=== PATIENT | female | born 1945 | race Caucasian/White ===

== ENCOUNTER 2021-11-02 09:59 | Observation (INO) ==
[~2021-11-02 09:59] MED LIST: Polymyxin B Sulfate 500,000 UNIT, Sodium Chloride IRRigation 1,000 ML IR ONE
[2021-11-02] MEDS ORDERED: CeFAZolin Syr 2,000MG/20 ML 2,000 MG/20 ML SYRINGE IVPB ONE (10:20)
[2021-11-02] MEDS ORDERED: Ringers Solution, Lactated 1,000 ML IVC SCH (10:30)
[2021-11-02] MEDS ORDERED: tiZANidine 4 MG TABLET PO ONE (11:00)
[2021-11-02] MEDS ORDERED: *HR* OxyCODONE Immed Rel 5 MG TABLET PO ONE (11:00)
[2021-11-02] MEDS ORDERED: Acetaminophen IV 1,000 MG/100 ML BAG IVPB ONE (11:00)
[2021-11-02] MEDS ORDERED: Famotidine 20 MG/2 ML VIAL IVP ONE (11:00)
[2021-11-02] MEDS ORDERED: Pregabalin 50 MG CAPSULE PO ONE (11:00)
[2021-11-02] MEDS ORDERED: *HR* FentaNYL (PF) 100 MCG/2 ML VIAL ONE (11:17)
[2021-11-02] MEDS ORDERED: *HR* Rocuronium Bromide 50 MG/5 ML VIAL ONE (11:18)
[2021-11-02] MEDS ORDERED: Lidocaine -MPF 2% 5 ML VIAL ONE (11:18)
[2021-11-02] MEDS ORDERED: Lidocaine HCL 4 ML Topical Solution (Laryng-O-Jet Kit Sterile Pak) TP ONE (11:22)
[2021-11-02] MEDS ORDERED: Ondansetron 4 MG/2 ML VIAL ONE (12:05)
[2021-11-02] MEDS ORDERED: Vancomycin 1,000 MG VIAL ONE (12:22)
[2021-11-02] MEDS ORDERED: EPHEDrine 50 MG/ML VIAL ONE (12:42)
[2021-11-02] MEDS ORDERED: Sugammadex Sodium 200 MG/2 ML VIAL IV ONE (13:04)
[2021-11-02] MEDS ORDERED: Morphine Sulfate 2 MG/ML SYRINGE IVP PRN (13:52)
[2021-11-02] MEDS ORDERED: Ondansetron 4 MG/2 ML VIAL IVP PRN ×2 (13:52→15:05)
[2021-11-02] MEDS ORDERED: Sennosides 8.6 MG TABLET PO PRN (15:05)
[2021-11-02] MEDS ORDERED: Naloxone 0.4 MG/ML INJ IVP PRN (15:05)
[2021-11-02] MEDS: *HR* Metformin 500 MG TABLET PO SCH (18:02)
[2021-11-02] MEDS: Pregabalin 50 MG CAPSULE PO SCH ×2 (18:03→20:04)
[2021-11-02] MEDS: CeFAZolin 2 GM/120 ML BAG IVPB SCH (20:03)
[2021-11-02] MEDS: *HR* HYDROcodone/Acet 5/325 mg TABLET PO PRN (20:04)
[2021-11-03] MEDS: CeFAZolin 2 GM/120 ML BAG IVPB SCH (03:41)
[2021-11-03] MEDS: *HR* HYDROcodone/Acet 5/325 mg TABLET PO PRN ×2 (03:48→19:11)
[2021-11-03] MEDS: Tiotropium 10 INH DOSE IH SCH (09:01)
[2021-11-03] MEDS: allopurinoL 100 MG TABLET PO SCH (09:47)
[2021-11-03] MEDS: lisinopriL 10 MG TABLET PO SCH (09:47)
[2021-11-03] MEDS: Pregabalin 50 MG CAPSULE PO SCH ×3 (09:48→20:02)
[2021-11-03] MEDS: *HR* Metformin 500 MG TABLET PO SCH ×2 (09:50→17:14)
[2021-11-04] MEDS: *HR* HYDROcodone/Acet 5/325 mg TABLET PO PRN ×2 (03:40→17:19)
[2021-11-04] MEDS: Tiotropium 10 INH DOSE IH SCH (07:54)
[2021-11-04] MEDS: lisinopriL 10 MG TABLET PO SCH (09:19)
[2021-11-04] MEDS: allopurinoL 100 MG TABLET PO SCH (09:20)
[2021-11-04] MEDS: *HR* Metformin 500 MG TABLET PO SCH ×2 (09:20→16:38)
[2021-11-04] MEDS: Pregabalin 50 MG CAPSULE PO SCH ×3 (09:20→20:23)
[2021-11-05] MEDS: lisinopriL 10 MG TABLET PO SCH (08:09)
[2021-11-05] MEDS: Pregabalin 50 MG CAPSULE PO SCH ×3 (08:10→22:04)
[2021-11-05] MEDS: allopurinoL 100 MG TABLET PO SCH (08:11)
[2021-11-05] MEDS: *HR* Metformin 500 MG TABLET PO SCH ×2 (08:11→15:38)
[2021-11-05] MEDS: Tiotropium 10 INH DOSE IH SCH (11:36)
[2021-11-05] MEDS: *HR* HYDROcodone/Acet 5/325 mg TABLET PO PRN (15:37)
[2021-11-06] MEDS: Acetaminophen 325 MG TABLET PO PRN (05:36)
[2021-11-06] MEDS: Tiotropium 10 INH DOSE IH SCH (08:40)
[2021-11-06] MEDS: lisinopriL 10 MG TABLET PO SCH (10:20)
[2021-11-06] MEDS: Pregabalin 50 MG CAPSULE PO SCH ×3 (10:20→20:50)
[2021-11-06] MEDS: allopurinoL 100 MG TABLET PO SCH (10:20)
[2021-11-06] MEDS: *HR* Metformin 500 MG TABLET PO SCH ×2 (10:22→15:40)
[2021-11-07] MEDS: *HR* OxyCODONE Immed Rel 5 MG TABLET PO PRN ×2 (06:24→14:27)
[2021-11-07] MEDS: Tiotropium 10 INH DOSE IH SCH (08:36)
[2021-11-07] MEDS: lisinopriL 10 MG TABLET PO SCH (09:19)
[2021-11-07] MEDS: allopurinoL 100 MG TABLET PO SCH (09:19)
[2021-11-07] MEDS: Pregabalin 50 MG CAPSULE PO SCH ×3 (09:20→21:04)
[2021-11-07] MEDS: *HR* Metformin 500 MG TABLET PO SCH ×2 (09:20→17:47)
[2021-11-07] MEDS: Acetaminophen 325 MG TABLET PO PRN (15:32)
[2021-11-08] MEDS: Acetaminophen 325 MG TABLET PO PRN ×2 (09:25→16:15)
[2021-11-08] MEDS: *HR* OxyCODONE Immed Rel 5 MG TABLET PO PRN (09:25)
[2021-11-08] MEDS: *HR* Metformin 500 MG TABLET PO SCH ×2 (09:26→18:40)
[2021-11-08] MEDS: lisinopriL 10 MG TABLET PO SCH (09:26)
[2021-11-08] MEDS: allopurinoL 100 MG TABLET PO SCH (09:26)
[2021-11-08] MEDS: Pregabalin 50 MG CAPSULE PO SCH ×3 (09:26→20:18)
[2021-11-08] MEDS: Tiotropium 10 INH DOSE IH SCH (10:32)
[2021-11-08] MEDS: *HR* HYDROcodone/Acet 5/325 mg TABLET PO PRN (13:03)
[2021-11-08 16:14] LABS: Influenza A PCR Negative (Negative); Influenza B PCR Negative (Negative); Resp. Syncytial Virus PCR Negative (Negative)
[2021-11-08 17:28] LABS: SARS-CoV-2 by PCR (In House) Positive (Negative)
[2021-11-08] MEDS ORDERED: 0.9 % Sodium Chloride 500 ML IVC ONE (20:43)
[2021-11-09] MEDS: *HR* HYDROcodone/Acet 5/325 mg TABLET PO PRN (06:12)
[2021-11-09] MEDS: Tiotropium 10 INH DOSE IH SCH (07:44)
[2021-11-09] MEDS: *HR* Metformin 500 MG TABLET PO SCH ×2 (08:31→15:50)
[2021-11-09] MEDS: allopurinoL 100 MG TABLET PO SCH (08:31)
[2021-11-09] MEDS: lisinopriL 10 MG TABLET PO SCH (08:31)
[2021-11-09] MEDS: Pregabalin 50 MG CAPSULE PO SCH ×3 (08:32→21:23)
[2021-11-10] MEDS: *HR* OxyCODONE Immed Rel 5 MG TABLET PO PRN (03:41)
[2021-11-10] MEDS: Tiotropium 10 INH DOSE IH SCH (07:28)
[2021-11-10] MEDS: *HR* Metformin 500 MG TABLET PO SCH ×2 (09:29→16:00)
[2021-11-10] MEDS: Pregabalin 50 MG CAPSULE PO SCH ×3 (09:29→22:14)
[2021-11-10] MEDS: lisinopriL 10 MG TABLET PO SCH (09:29)
[2021-11-10] MEDS: allopurinoL 100 MG TABLET PO SCH (09:29)
[2021-11-11] MEDS: Tiotropium 10 INH DOSE IH SCH (07:49)
[2021-11-11] MEDS: *HR* Metformin 500 MG TABLET PO SCH ×2 (08:10→16:09)
[2021-11-11] MEDS: Pregabalin 50 MG CAPSULE PO SCH ×3 (08:10→22:25)
[2021-11-11] MEDS: allopurinoL 100 MG TABLET PO SCH (08:10)
[2021-11-11] MEDS: lisinopriL 10 MG TABLET PO SCH (08:10)
[2021-11-11] MEDS: *HR* HYDROcodone/Acet 5/325 mg TABLET PO PRN (14:22)
[2021-11-12] MEDS: *HR* OxyCODONE Immed Rel 5 MG TABLET PO PRN (04:03)
[2021-11-12] MEDS: lisinopriL 10 MG TABLET PO SCH (09:23)
[2021-11-12] MEDS: Pregabalin 50 MG CAPSULE PO SCH ×3 (09:23→21:42)
[2021-11-12] MEDS: allopurinoL 100 MG TABLET PO SCH (09:23)
[2021-11-12] MEDS: *HR* Metformin 500 MG TABLET PO SCH (09:23)
[2021-11-12] MEDS: Tiotropium 10 INH DOSE IH SCH (09:42)
[2021-11-12] MEDS ORDERED: Dextrose Gel 15 GM/37.5 ML TUBE PO PRN ×2 (14:49)
[2021-11-12] MEDS ORDERED: *HR* Dextrose 50 % in Water (Syg) 50 ML SYRINGE IVP PRN (14:49)
[2021-11-12] MEDS ORDERED: D5% in Water 1,000 ML IVC PRN (14:49)
[2021-11-12 16:42] LABS: Mean Platelet Volume 11.2 fL (9.4-12.4)
[2021-11-12 16:43] LABS: Hematocrit 29.5 % (35.3-44.9); Hemoglobin 8.1 g/dL (11.5-15.4); Mean Corpuscular HGB Conc 27.5 g/dL (31.6-35.5); Mean Corpuscular Hemoglobin 20.5 pg (28.0-33.3); Mean Corpuscular Volume 74.5 fL (83.0-100.0); Platelet Count 239 K/mcL (140-400); Red Blood Count 3.96 M/mcL (3.82-4.97); Red Cell Distribution Width 20.8 % (11.5-14.5); White Blood Count 8.9 K/mcL (4.3-11.1)
[2021-11-12 16:46] LABS: Alanine Aminotransferase 7 Units/L (7-52); Albumin 3.2 g/dL (3.5-5.7); Albumin/Globulin Ratio 1.1 (1.1-2.2); Alkaline Phosphatase 97 Units/L (34-104); Aspartate Amino Transferase 12 Units/L (13-39); BUN/Creatinine Ratio 38 (6-26); Bilirubin,Total 0.3 mg/dL (0.3-1.0); Blood Urea Nitrogen 21 mg/dL (8-23); Calcium 8.4 mg/dL (8.6-10.3); Carbon Dioxide 27 mEq/L (23-29); Chloride 104 mEq/L (98-107); Globulin 2.8 g/dL (2.4-3.5); Glucose 94 mg/dL (70-105); Osmolality,Calculated 291 (280-300); Potassium 3.7 mEq/L (3.5-5.1); Sodium 139 mEq/L (136-145); eGFR For African Americans > 60 (> 60); eGFR For Non-African Americans > 60 (> 60)
[2021-11-12 16:47] LABS: Prothrombin Time 11.1 Seconds (9.4-12.1)
[2021-11-12] MEDS: Insulin LISPRO 300 UNITS/3 ML VIAL SUBQ SCH ×2 (17:09→21:22)
[2021-11-12 19:18] LABS: Bilirubin,Urine Negative (Negative); Blood,Urine Negative (Negative); Clarity,Urine Turbid (Clear); Color,Urine Light-Yellow (Yellow); Glucose,Urine (UA) Normal (Normal); Ketones,Urine Negative (Negative); Leukocyte Esterase,Urine Large (Negative); Mucus,Urine Few per lpf (None-Few); Nitrite,Urine Positive (Negative); Protein,Urine Trace mg/dL (Neg-Trace); Specific Gravity,Urine 1.022 (1.010-1.025); Squamous Epithelial Cell,Urine Few per hpf (None-Few); Urobilinogen,Urine Normal (Normal); WBC,Urine TNTC per hpf (0-3)
[2021-11-13] MEDS: Insulin LISPRO 300 UNITS/3 ML VIAL SUBQ SCH ×4 (08:31→21:51)
[2021-11-13] MEDS: BuPROPion XL (24 HR) 150 MG TABLET PO SCH (08:42)
[2021-11-13] MEDS: Pregabalin 50 MG CAPSULE PO SCH ×3 (08:42→21:53)
[2021-11-13] MEDS: lisinopriL 5 MG TABLET PO SCH (08:43)
[2021-11-13] MEDS: allopurinoL 100 MG TABLET PO SCH (08:43)
[2021-11-13] MEDS: levoFLOXacin 500 MG/100 ML 500 MG/100 ML BAG IVPB SCH (08:43)
[2021-11-13] MEDS: Tiotropium 10 INH DOSE IH SCH (10:32)
[2021-11-13] MEDS: traZODone 50 MG TABLET PO SCH (21:50)
[2021-11-14 02:36] LABS: Basophils % 0.5 %
[2021-11-14 02:37] LABS: Eosinophils # 0.1 K/mcL (0.0-0.6); Eosinophils % 1.1 %; Hematocrit 28.2 % (35.3-44.9); Hemoglobin 7.8 g/dL (11.5-15.4); Immature Granulocytes % 0.5 % (0-4); Lymphocytes # 2.6 K/mcL (0.6-4.6); Lymphocytes % 34.1 %; Mean Corpuscular HGB Conc 27.7 g/dL (31.6-35.5); Mean Corpuscular Hemoglobin 20.1 pg (28.0-33.3); Mean Corpuscular Volume 72.7 fL (83.0-100.0); Mean Platelet Volume 11.2 fL (9.4-12.4); Monocytes # 0.4 K/mcL (0.0-1.3); Monocytes % 5.6 %; Neutrophils # 4.4 K/mcL (1.6-8.9); Platelet Count 199 K/mcL (140-400); Red Blood Count 3.88 M/mcL (3.82-4.97); Red Cell Distribution Width 20.6 % (11.5-14.5); Segmented Neutrophils % 58.2 %; White Blood Count 7.5 K/mcL (4.3-11.1)
[2021-11-14 02:50] LABS: INR 1.1
[2021-11-14 02:56] LABS: BUN/Creatinine Ratio 24 (6-26); Blood Urea Nitrogen 18 mg/dL (8-23); Calcium 8.5 mg/dL (8.6-10.3); Carbon Dioxide 28 mEq/L (23-29); Chloride 106 mEq/L (98-107); Glucose 88 mg/dL (70-105); Magnesium 1.5 mg/dL (1.6-2.6); Osmolality,Calculated 295 (280-300); Potassium 3.9 mEq/L (3.5-5.1); Sodium 142 mEq/L (136-145); eGFR For African Americans > 60 (> 60); eGFR For Non-African Americans > 60 (> 60)
[2021-11-14 03:08] LABS: Thyroid Stimulating Hormone 0.553 mcIU/mL (0.340-5.600)
[2021-11-14] MEDS: Insulin LISPRO 300 UNITS/3 ML VIAL SUBQ SCH ×4 (07:41→19:55)
[2021-11-14] MEDS: lisinopriL 5 MG TABLET PO SCH (09:51)
[2021-11-14] MEDS: allopurinoL 100 MG TABLET PO SCH (09:51)
[2021-11-14] MEDS: BuPROPion XL (24 HR) 150 MG TABLET PO SCH (09:51)
[2021-11-14] MEDS: Pregabalin 50 MG CAPSULE PO SCH ×3 (09:52→19:55)
[2021-11-14] MEDS: Tiotropium 10 INH DOSE IH SCH (09:52)
[2021-11-14] MEDS: levoFLOXacin 500 MG/100 ML 500 MG/100 ML BAG IVPB SCH (12:06)
[2021-11-14] MEDS: traZODone 50 MG TABLET PO SCH (19:55)
[2021-11-14] MEDS: levoFLOXacin 500 MG TABLET PO SCH (22:59)
[2021-11-15 04:59] LABS: Eosinophils % 0.8 %; Red Cell Distribution Width 20.5 % (11.5-14.5)
[2021-11-15 05:01] LABS: Basophils % 0.6 %; Eosinophils # 0.1 K/mcL (0.0-0.6); Hematocrit 29.7 % (35.3-44.9); Hemoglobin 8.3 g/dL (11.5-15.4); Immature Granulocytes % 0.3 % (0-4); Immature Platelets 8.9 % (1.1-6.1); Lymphocytes # 2.1 K/mcL (0.6-4.6); Mean Corpuscular HGB Conc 27.9 g/dL (31.6-35.5); Mean Corpuscular Hemoglobin 20.6 pg (28.0-33.3); Mean Corpuscular Volume 73.9 fL (83.0-100.0); Mean Platelet Volume 11.1 fL (9.4-12.4); Monocytes # 0.4 K/mcL (0.0-1.3); Monocytes % 5.8 %; Neutrophils # 4.6 K/mcL (1.6-8.9); Platelet Count 237 K/mcL (140-400); Red Blood Count 4.02 M/mcL (3.82-4.97); Segmented Neutrophils % 63.5 %; White Blood Count 7.2 K/mcL (4.3-11.1)
[2021-11-15 05:59] LABS: BUN/Creatinine Ratio 30 (6-26); Blood Urea Nitrogen 18 mg/dL (8-23); Calcium 8.8 mg/dL (8.6-10.3); Carbon Dioxide 30 mEq/L (23-29); Chloride 102 mEq/L (98-107); Glucose 120 mg/dL (70-105); Magnesium 1.7 mg/dL (1.6-2.6); Osmolality,Calculated 291 (280-300); Potassium 3.8 mEq/L (3.5-5.1); Sodium 139 mEq/L (136-145); eGFR For African Americans > 60 (> 60); eGFR For Non-African Americans > 60 (> 60)
[2021-11-15] MEDS: Insulin LISPRO 300 UNITS/3 ML VIAL SUBQ SCH ×4 (08:08→21:12)
[2021-11-15] MEDS: BuPROPion XL (24 HR) 150 MG TABLET PO SCH (09:21)
[2021-11-15] MEDS: Pregabalin 50 MG CAPSULE PO SCH ×3 (09:21→21:04)
[2021-11-15] MEDS: levoFLOXacin 500 MG TABLET PO SCH (09:22)
[2021-11-15] MEDS: lisinopriL 5 MG TABLET PO SCH (09:22)
[2021-11-15] MEDS: allopurinoL 100 MG TABLET PO SCH (09:22)
[2021-11-15] MEDS: Tiotropium 10 INH DOSE IH SCH (10:28)
[2021-11-15] MEDS: *HR* Enoxaparin 40 MG/0.4 ML SYRINGE SQ SCH (12:01)
[2021-11-15] MEDS: traZODone 50 MG TABLET PO SCH (21:01)
[2021-11-15] MEDS: *HR* OxyCODONE Immed Rel 5 MG TABLET PO PRN (21:02)
[2021-11-16] MEDS: allopurinoL 100 MG TABLET PO SCH (09:33)
[2021-11-16] MEDS: BuPROPion XL (24 HR) 150 MG TABLET PO SCH (09:33)
[2021-11-16] MEDS: Pregabalin 50 MG CAPSULE PO SCH (09:34)
[2021-11-16] MEDS: *HR* Enoxaparin 40 MG/0.4 ML SYRINGE SQ SCH (09:34)
[2021-11-16] MEDS: levoFLOXacin 500 MG TABLET PO SCH (09:34)
[2021-11-16] MEDS: Insulin LISPRO 300 UNITS/3 ML VIAL SUBQ SCH ×3 (09:35→18:00)
[2021-11-16] MEDS: lisinopriL 5 MG TABLET PO SCH (09:50)
[2021-11-16] MEDS: Tiotropium 10 INH DOSE IH SCH (10:04)
[2021-11-16 11:55] VITALS: TEMP 98
[2021-11-16 16:06] VITALS: BP 108/70; PULSE 84; O2SAT 92
== END 2021-11-16 19:15 ==
LOC: SDCAOSI 09:59 → 4WAOSI 09:59 → SUATTDRO 11-03 18:06
PROVIDERS: ADMIT Student in an Organized Health Care Education/Training Program; ATTEND Internal Medicine